=== PATIENT | female | born 1990 | race Caucasian/White ===

== ENCOUNTER 2016-06-18 20:19 | Emergency (ER) | payer MEDICAID, OTHER ==
[~2016-06-18] VITALS: Ht 154.9 cm; Wt 56.8 kg
[~2016-06-18 20:19] MED LIST: NOCURR
[2016-06-18] MEDS ORDERED: ACETAMINOPHEN/CODEINE 300-30 MG TABLET PO ONE (22:30)
[2016-06-18 22:33] VITALS: BP 118/78
== END 2016-06-18 22:34 | disposition home or self-care (01) ==
LOC: EMS 20:20
DX: M67.431 Ganglion, right wrist (principal)
CPT/HCPCS: 99283